=== PATIENT | male | born 1940 | race African-American/Black ===

== ENCOUNTER → 2018-08-14 | Outpatient (CLI) | payer MEDICARE, OTHER ==
[~2018-08-14] MED LIST: ACTOS 45MG45 MG/TAB PO; ALDACTONE 25MG25 M1 PO; ALOE VERA1 CAP PO; ASPIRIN 81M81 MG/TA2 PO; ASPIRIN E.C. 8181 MG PO; CARDIZEM CD360 MG PO; CARDIZEM LA360 MG PO; CARDIZEM120 MG; CATAPRES 0.1MG0.1 MG PO; CEPHALEXIN500 M1 PO; CHELATION PO; CO Q-10 100 MG-1 SGL PO; COLCRYS0.6 MG PO; CORDARONE200 MG/TAB PO; DALIRESP500 MCG PO; DEMADEX10 MG PO; DETROL 2MG TAB2 MG PO; DITROPAN 5MG TAB5 MG PO; DITROPAN XL10 MG PO; DRAMAMINE 50MG50 MG PO; DULCOLAX TAB5 MG PO; ELIQUIS 5MG PO; FEOSOL45 MG PO; FERROUS SULFATE65 MG PO; FLEXERIL 1010 MG/TAB PO; FLOMAX 0.40.4 MG/CAP PO; FLONASE NASAL S16 GM NS; GLUCOTROL 5M5 MG/TAB PO; GLUCOTROL XL10 MG PO; HCTZ 25MG TAB25 MG PO; HYTRIN10 MG PO; IRON325 M1; JANUVIA 100MG100 MG PO; JANUVIA50 MG PO; K-DUR 10 MEQ T10 MEQ PO; K-DUR20 MEQ PO; LASIX 40MG TABL40 MG PO; LIPITOR 10MG10 MG PO; LIPITOR20 MG PO; LOPRESSOR 225 MG/TAB PO; LOPRESSOR 550 MG/TAB PO; LOTENSIN40 MG PO; MULTAQ400 MG PO; NASONEX SPRAY17 GM NS; NORCO 325 MG-51 TAB PO; NORCO 325 MG-7.1 TAB PO; OMEGA 31000 MG PO; PERCOCET 325 MG1 TA2 PO; PRIL40 PO; PRILOSEC 20MG20 MG PO; PROAIR HFA0.09 MG/AC IH; RED KRILL OIL PO; RT ADVAIR 228 DISKUS IH; RT SPIRIVA18 MCG IH; SENOKOT8.6 MG PO; TOPROL XL100 MG PO; VESICARE 5MG5 MG PO; VTAMINC250TA PO
== END ==
LOC: COL.RAD 08:39
DX: C61 Malignant neoplasm of prostate (principal)
CPT/HCPCS: A9503

== ENCOUNTER 2019-02-16 08:31 | Observation (INO) | payer MEDICARE, OTHER ==
[~2019-02-16] VITALS: Ht 185.4 cm; Wt 98.8 kg
--- NOTE | 2019-02-16 08:30 | NUR ---
Patient arrived via EMS stretcher to room 311. Patient oriented to room. Bonny in to complete initial vitals. Patient has daughter at bedside. Patinet A&O at this time.
[2019-02-16 08:43] VITALS: BP 120/79; PULSE 100; TEMP 97.9
[2019-02-16] MEDS ORDERED: CLARITIN 1010 MG/TAB PO (09:00)
[2019-02-16] MEDS ORDERED: CALCITRIOL PO (09:02)
[2019-02-16] MEDS ORDERED: ZYLOPRIM 100MG100 MG PO (09:02)
[2019-02-16] MEDS ORDERED: OS-CAL 500 + D1 TAB PO (09:04)
[2019-02-16] MEDS ORDERED: XALATAN EYE DROPS OD (09:05)
[2019-02-16] MEDS ORDERED: SIMBRINZA 0.2%-18 ML OU (09:06)
[2019-02-16 10:19] LABS: CHOLESTEROL RISK RATIO 1.8
[2019-02-16 10:31] LABS: TROPONIN-I 0.034 ng/mL (0.000-0.035)
--- NOTE | 2019-02-16 11:00 | NUR ---
Patient admission completed and charted. Med rec completed. Patient denies chest pain, dizziness, vision changes, N/V, numbness or tingling, SOB. Patient c/o of severe low back pain that runs across middle lower back. Per patient "If i lay here flat I am ok" and rates pain at 1/10. Pt denies need for pain medication. Pt A&O, VSS. Hospitalist aware of patients arrival. Pt on room air. 20G RFA INT IV patent. Tele in place. Denies needs at this time. Call light within reach.
--- NOTE | 2019-02-16 11:15 | NUR ---
Patient lives at home alone in [place], [place] and plans to return home upon discharge. Patient is moderately independent with daily living activites and receives support from his daughter (Kaylee Noriega) on a daily basis as she helps patient with all driving, cleaning, and doing his medications. Kaylee lives in [place], [place] but does try to visit the patient daily. Patient is retired and has Meniere's Disease, Vertigo, and is hard of hearing. Patient uses a cane for mobility assistance, has home oxygen via [employer] for nighttime use, and a raised toilet seat. His primary care physician is Dr. Idris Mccurdy, his pharamcy is [facility], and he does have advance directives (DPOA and Living Will) and his DPOA is his daughter, Kaylee Noriega. Patient has a stress test scheduled for tomorrow and no further needs at this time.
[2019-02-16 11:36] VITALS: BP 120/80; PULSE 56; TEMP 97.4
[2019-02-16 16:33] VITALS: BP 115/70; PULSE 105; TEMP 97.6
--- NOTE | 2019-02-16 16:45 | NUR ---
Patient wanted to go to the bathroom and attempt to get up on his own. This nurse and KASHMIR Pastrana in to help. Patient wanted to do things on his own. Patient unable to sit up without being in pain. Refused pain medication, continues to state he isn't in pain if he lays flat. Patient stated he would "hold it". refused bed ugarte and bedside commode. Patient assisted back into a comfortable position in bed. Denies other needs at this time. Call light within reach.
[2019-02-16 19:38] VITALS: BP 149/80; PULSE 87; TEMP 99.1
--- NOTE | 2019-02-16 20:00 | NUR ---
Shift assessment complete. Pt resting in bed, awake, a&o, cooperative c cares. Pt continued c/o "bad" back pain, req home dose 2t [place]; practioner disease control inspector notivied et pt given [place] per request. Pt denies any other c/o. INT patent. Tele in place. PT denies needs. Call light in reach, bed alarm on. Will monitor.
[2019-02-16 23:59] VITALS: BP 140/89; PULSE 107; TEMP 98.6
[2019-02-17] VITALS (14 sets, daily range): BP systolic 103–162; BP diastolic 46–86; PULSE 65–111; TEMP 97.5–98.4
[2019-02-17 07:04] LABS: BASO % 0.1 % (0.0-2.0); EOS % 0.2 % (0-4.0); GRAN # 6.4 (1.4-6.5); GRAN % 70.4 % (42.2-75.2); HEMOGLOBIN 11.5 g/dl (13.5-18.0); LYMPH # 1.4 (1.2-3.4); LYMPH % 15.1 % (20.0-51.0); MEAN CELL VOLUME 93 fl (80.0-100.0); MEAN CORPUSCULAR HEMOGLOBIN 30 pg (27.0-31.0); MEAN CORPUSCULAR HGB CONC 32 g/dl (33.0-37.0); MEAN PLATELET VOLUME 10.1 fl (7.4-10.4); MONO # 1.2 (0.1-0.6); MONO % 13.5 % (1.7-9.3); PLATELET COUNT 235 K/mm3 (130-400); RED BLOOD COUNT 3.88 M/mm3 (4.20-5.60); REDCELL DISTRIBUTION WIDTH-CV 15.5 % (11.5-14.5)
[2019-02-17 07:07] LABS: HEMATOCRIT 36.1 % (42.0-52.0)
[2019-02-17 07:18] LABS: CALCIUM 9.6 mg/dL (8.4-10.2); CREATININE, serum 2.47 (0.66-1.25); POTASSIUM 4.4 mmol/L (3.4-5.0)
[2019-02-17 07:51] LABS: TROPONIN-I 0.049 ng/mL (0.000-0.035)
--- NOTE | 2019-02-17 08:00 | NUR ---
PATIENT IS ORIENTED BUT DROWSY. VSS. DENIES PAIN AT REST. GROUP MANAGER REPORTS PAIN HAD A LOT OF CHRONIC BACK PAIN LAST NIGHT WHEN TRYING TO SLEEP. PATIENT DENIES CHEST PAIN OR SOB. AM TROPONIN 0.049. HR RATE CONTROLED IN 60-70'S ON TELE. RIGHT FORARM IV. NPO FOR LEXISCAN THIS AM. AM BS WAS 157, NO SSI REQUIRED. HEAD TO TOE ASSESSMENT COMPLETE.
--- NOTE | 2019-02-17 09:30 | NUR ---
PATIENT GOING DOWN TO [facility] VIA CART.
--- NOTE | 2019-02-17 16:25 | NUR ---
PATIENT RESTING IN BED. PATIENT REPORTS HE HAS NO PAIN AT REST BUT HIS CHRONIC BACK DOES HURT WITH ACTIVITY. PATIENT DENIES NEED FOR PAIN MEDS AT THIS TIME.
--- NOTE | 2019-02-17 17:00 | NUR ---
Pt report received from Natasha Feldman RN. Pt resting in bed and denies needs at this time. Pt alert and oriented with call light in reach.
--- NOTE | 2019-02-17 19:25 | NUR ---
Shift assessment complete. Pt resting in bed, awake, a&o, cooperative c cares. Pt c/o continued back pain that "makes me feel bad" rated "6 or 7/10"; prn pain medical staff assistant per pt et daughter's request who states he takes norco every 4h at home for back pain. Pt denies any other c/o at this time. INT patent. Tele in place. Pt denies needs. Call light in reach, bed alarm on. Will monitor.
[2019-02-18 00:32] VITALS: BP 134/83; PULSE 68; TEMP 98
[2019-02-18 04:44] VITALS: BP 149/66; PULSE 73; TEMP 98.3
--- NOTE | 2019-02-18 05:23 | NUR ---
Pt resting in bed, condition unchanged. Pt has rested int this shift but reports not sleeping well due to pain. Pt has had significant increase in pain this shift, c/o "they wasn't giving me my (pain) pills yesterday". Pt has also gotten up to commode x2, causing increased pain. Pain moderately well controlled c PRN Debord Q4 per pt request, following home schedule. Pain reports to be as low as "4/10" when at rest, as high as "9/10" after using commode. Pt has otherwise denied needs. No needs at this time. Call light in reach, bed alarm on.
--- NOTE | 2019-02-18 07:30 | NUR ---
Received report from KASHMIR Olguin.
[2019-02-18 08:16] VITALS: BP 136/94; PULSE 74; PULSE 78; TEMP 97.5
[2019-02-18 08:32] LABS: BASO % 0.2 % (0.0-2.0); EOS % 0.2 % (0-4.0); GRAN # 6.2 (1.4-6.5); GRAN % 68.5 % (42.2-75.2); LYMPH # 1.4 (1.2-3.4); LYMPH % 15.4 % (20.0-51.0); MEAN CELL VOLUME 92 fl (80.0-100.0); MEAN CORPUSCULAR HEMOGLOBIN 29 pg (27.0-31.0); MEAN CORPUSCULAR HGB CONC 32 g/dl (33.0-37.0); MEAN PLATELET VOLUME 10.3 fl (7.4-10.4); MONO # 1.3 (0.1-0.6); MONO % 14.8 % (1.7-9.3); PLATELET COUNT 241 K/mm3 (130-400); RED BLOOD COUNT 3.78 M/mm3 (4.20-5.60); REDCELL DISTRIBUTION WIDTH-CV 15.6 % (11.5-14.5)
[2019-02-18 08:40] LABS: CALCIUM 9.7 mg/dL (8.4-10.2); CREATININE, serum 2.68 (0.66-1.25); HEMATOCRIT 34.7 % (42.0-52.0); POTASSIUM 3.9 mmol/L (3.4-5.0)
--- NOTE | 2019-02-18 09:35 | NUR ---
Pt resting in bed, C/O pain in lower back, currently tolerable, shift assessments complete, left Pt call light in reach, bed in lowest position.
--- NOTE | 2019-02-18 10:50 | NUR ---
JOSY attended clinical rounds. The hospitalist discussed therapies recommendation of IPR vs SNF. The patient reports that he would be agreeable to IPR. Meena, IPR Director, was consulted and plans to meet with the patient. JOSY to continue to follow.
[2019-02-18 12:16] VITALS: BP 107/65; PULSE 73; TEMP 97.9
[2019-02-18 15:16] VITALS: BP 114/60; BP 98/57; PULSE 65; TEMP 98
--- NOTE | 2019-02-18 19:21 | NUR ---
Pt rested in the room during the day, has sharp lower back pain exacerbated with movement, Pt has been up on the bedside commode twice during the shift, VS have remained stable.
--- NOTE | 2019-02-18 19:40 | NUR ---
Shift assessment complete. Pt resting in bed, awake, a&o, cooperative c cares. Pt reports continued low back pain; PRN Bourbon et flexeril admin per pt request. Pt denies other c/o or request. INT patent. Tele in place. Pt denies needs at this time. Call light in reach, will monitor.
[2019-02-18 20:02] VITALS: BP 92/66; PULSE 92; TEMP 98
[2019-02-19 00:46] VITALS: BP 125/56; PULSE 62; TEMP 98.5
--- NOTE | 2019-02-19 05:33 | NUR ---
Pt resting in bed, condition unchanged. Pt has rested well this shift but continues to report not sleeping well due to back pain, despite pain medications et flexeril. Pain moderately well controlled c PRN Fowler admin upon pt request, q4 this shift. Pt c/o "this pain's just not getting better". Continues to rate pain 4-9/10 this shift. Pt has had very few other needs. No needs at this time. Call light in reach.
[2019-02-19 07:43] VITALS: BP 144/78; PULSE 84; TEMP 98.4
[2019-02-19 07:45] LABS: BASO % 0.3 % (0.0-2.0); EOS # 0.1 (0.0-0.7); EOS % 0.7 % (0-4.0); GRAN # 4.9 (1.4-6.5); HEMOGLOBIN 11.4 g/dl (13.5-18.0); LYMPH # 1.3 (1.2-3.4); LYMPH % 17.8 % (20.0-51.0); MEAN CELL VOLUME 92 fl (80.0-100.0); MEAN CORPUSCULAR HEMOGLOBIN 30 pg (27.0-31.0); MEAN CORPUSCULAR HGB CONC 32 g/dl (33.0-37.0); MEAN PLATELET VOLUME 10.3 fl (7.4-10.4); MONO % 13.2 % (1.7-9.3); PLATELET COUNT 215 K/mm3 (130-400); RED BLOOD COUNT 3.86 M/mm3 (4.20-5.60); REDCELL DISTRIBUTION WIDTH-CV 15.5 % (11.5-14.5)
[2019-02-19 07:54] LABS: CALCIUM 9.6 mg/dL (8.4-10.2); CREATININE, serum 2.53 (0.66-1.25); POTASSIUM 3.9 mmol/L (3.4-5.0)
[2019-02-19 07:55] LABS: HEMATOCRIT 35.3 % (42.0-52.0)
--- NOTE | 2019-02-19 09:15 | NUR ---
Pt awake and laert upon entry to room, C/O pain in lower back, lidocaine patch applied, shift assessments complete, left Pt call light in reach, bed in lowest position
--- NOTE | 2019-02-19 11:41 | NUR ---
First visit from the clinical manager. No needs right now.
[2019-02-19 13:02] VITALS: BP 120/50; PULSE 77; TEMP 98.2
[2019-02-19 18:06] VITALS: BP 151/63; PULSE 85; TEMP 98.7
[2019-02-19 19:33] VITALS: BP 152/80; PULSE 80; TEMP 97.9
--- NOTE | 2019-02-19 20:00 | NUR ---
Patient awake and resting in bed at this time. He is alert and oriented. Only has complaints of pain when he moves. Assessment complete. Lungs are clear with diminished bases. HR and rhythm regular with normal S1 and S2 heard. Tele leads checked and are in place. Bowel sounds active x4. Patient has no further needs at this time. Will continue to monitor. Call light within reach.
--- NOTE | 2019-02-19 22:25 | NUR ---
Assisted patient up to bedside commode for a bowel movement with assistance of CIELO Weiss. Patient is very unstable on his feet and is a heavy 2 assist. Patient now returns to bed and is requesting pain medication for shooting pains in his back. To be provided.
[2019-02-19 23:28] VITALS: BP 127/66; PULSE 84; TEMP 98.6
--- NOTE | 2019-02-20 01:00 | NUR ---
Patient refuses SCD's at this time. States "they are too restricting of my movement. And I'm already restricted from pain."
[2019-02-20 03:18] VITALS: BP 132/66; PULSE 71; TEMP 98
--- NOTE | 2019-02-20 04:00 | NUR ---
Patient awake in bed watching TV. No complaints of pain at this time. No further needs. Will continue to monitor. Call light within reach.
[2019-02-20] MEDS ORDERED: Lidocaine 4% Patch TP (07:41)
[2019-02-20] MEDS ORDERED: COLACE 100100 MG/CAP PO (07:42)
[2019-02-20] MEDS ORDERED: TYLENOL 325MG325 MG PO (07:42)
[2019-02-20] MEDS ORDERED: MIRALAX PA17 GM/Dose PO (07:43)
[2019-02-20 08:21] VITALS: BP 144/65; PULSE 88; TEMP 97.9
[2019-02-20 11:29] VITALS: BP 144/76; PULSE 75; TEMP 98.3
--- NOTE | 2019-02-20 11:56 | NUR ---
Meena, IPR Director, reports that they can accept the patient. The patient is to discharge today, 02/20, to [facility]. No additional needs at this time.
[2019-02-20 13:20] VITALS: BP 144/76; PULSE 75; TEMP 98.3
--- NOTE | 2019-02-20 13:55 | NUR ---
Patient transferring to [facility], I have given report to receivinge nurse Lynne RN, IV and tele removed and patient transferred to room 335 by wheelchair
[2019-02-20] MEDS ORDERED: HEPARIN SOD5000 U/ML SQ (17:05)
[2019-02-20] MEDS ORDERED: NOVOLOG 100U100 U/M1 SQ (17:06)
== END 2019-02-20 13:56 ==
LOC: MEDICAL 08:31
PROVIDERS: Physician Assistant; ADMIT Hospitalist
DX: M54.5 Low back pain (principal); K59.00 Constipation, unspecified; I13.0 Hypertensive heart and chronic kidney disease with heart failure and stage 1 through stage 4 chronic kidney disease, or unspecified chronic kidney disease; E11.22 Type 2 diabetes mellitus with diabetic chronic kidney disease; I50.22 Chronic systolic (congestive) heart failure; N18.4 Chronic kidney disease, stage 4 (severe); I27.20 Pulmonary hypertension, unspecified; M10.9 Gout, unspecified; K21.9 Gastro-esophageal reflux disease without esophagitis; R33.9 Retention of urine, unspecified; I48.1 Persistent atrial fibrillation; J44.9 Chronic obstructive pulmonary disease, unspecified; E78.5 Hyperlipidemia, unspecified; Z79.51 Long term (current) use of inhaled steroids; Z96.651 Presence of right artificial knee joint; Z90.79 Acquired absence of other genital organ(s); Z79.82 Long term (current) use of aspirin; F17.210 Nicotine dependence, cigarettes, uncomplicated; I08.1 Rheumatic disorders of both mitral and tricuspid valves
CPT/HCPCS: A9500; G0378; J1644; J1815; J2270; J2785